=== PATIENT | female | born 1960 | race Caucasian/White ===

== ENCOUNTER → 2020-09-01 11:48 | Outpatient (CLI) | payer BC, OTHER, SELFPAY ==
--- NOTE | 2020-09-01 | DI.MRI.S_ITS ---
PROCEDURE: MR LUMBAR SPINE WO CON INDICATIONS: Other intervertebral disc degeneration, lumbar region TECHNIQUE: Noncontrast sagittal T1 spin echo and T2 fast echo, sagittal STIR, axial T1 and T2 fast spin echo through the lumbar spine. In cases with scoliosis, additional coronal T2 fast spin echo may be performed. COMPARISON: [facility], MR, L-SPINE WITHOUT CONTRAST, 04/12/2013, 13:04. FINDINGS: Image quality: Excellent. Alignment and Curvature: There is normal bony alignment. Bone Marrow: Marrow is of normal overall signal. Stable round hypodense bone marrow signal areas in L2 and L4, consistent with benign lesions due to lack of interval change. No acute vertebral body compression fractures. Spinal Cord: Conus medullaris terminates at the L1 level. Visualized cord demonstrates normal signal and size. Paraspinous Soft Tissues: No paravertebral masses. T12-L1: No canal stenosis or foraminal stenosis. L1-L2: Mild facet hypertrophy. No canal stenosis or foraminal stenosis. L2-L3: Mild disc bulge. Facet and ligament hypertrophy. No canal stenosis or foraminal stenosis. L3-L4: Development of mild broad-based disc protrusion, eccentric to the left, as well as mild left foraminal disc protrusion. Facet and ligament hypertrophy. Mild canal stenosis and mild left foraminal stenosis. L4-L5: Interval progression. Moderate canal stenosis secondary to mild disc bulge and prominent facet and ligament hypertrophy. Epidural lipomatosis may contribute to canal stenosis. Mild bilateral foraminal narrowing. L5-S1: Bilateral facet hypertrophy. No canal stenosis or foraminal stenosis. IMPRESSION: 1. At L3-L4, there is a mild broad-based disc protrusion, eccentric to the left, as well as a mild left foraminal disc protrusion. There is mild canal stenosis and left foraminal stenosis. 2. Progressive canal stenosis at L4-L5, moderate. 3. Multilevel facet arthropathy. Dictated by: Vega Moralez M.D. on 09/01/2020 at 12:41 Approved by: Vega Moralez M.D. on 09/01/2020 at 12:49
== END ==
PROVIDERS: Family Provider Family Medicine; PCP Family Medicine; Referring Provider Family Medicine; Visit Provider Family Medicine
DX: M51.36 Other intervertebral disc degeneration, lumbar region (principal); M51.26 Other intervertebral disc displacement, lumbar region; M48.061 Spinal stenosis, lumbar region without neurogenic claudication; M47.816 Spondylosis without myelopathy or radiculopathy, lumbar region
CPT/HCPCS: 72148